=== PATIENT | female | born 1980 | race Caucasian/White ===

== ENCOUNTER 2017-07-14 11:22 | Emergency (ER) | payer BC ==
[2017-07-14] MEDS ORDERED: Ondansetron INJ* 2 MG/ML VIAL IV ONE (12:39)
[2017-07-14] MEDS ORDERED: NS 0.9% 1000 ML* 1,000 ML IV ONE (12:39)
[2017-07-14] MEDS ORDERED: Morphine INJ* 2 MG/ML 1 ML CARPUJECT IV ONE (12:39)
[2017-07-14] MEDS ORDERED: Ketorolac INJ* 30 MG/ML 1 ML VIAL IV PUSH ONE (12:40)
[2017-07-14 13:17] LABS: Hematocrit 43 % (35-47); Hemoglobin 14.5 g/dl (12.0-16.0); Mean Corpuscular HGB Conc 34 g/dl (31-36); Mean Corpuscular Hemoglobin 30 pg (27-31); Mean Corpuscular Volume 88 fL (80-97); Mean Platelet Volume 10 um3 (7.4-10.4); Red Blood Count 4.87 10^6/ul (4.0-5.4); Red Cell Distribution Width 13 % (10.5-15); White Blood Count 8.7 10^3/ul (3.5-10.8)
[2017-07-14 13:30] LABS: BUN/Creatinine Ratio 9.2 (8-20); Calcium 8.9 mg/dL (8.6-10.3); EGFR African American 110.7 (>60); EGFR Non-African American 86.1 (>60); Potassium 4.1 mmol/L (3.5-5.0); Total Bilirubin 0.3 mg/dL (0.2-1.0)
[2017-07-14 14:10] VITALS: BP 114/68
--- NOTE | 2017-07-15 21:05 | ED ---
Monet Hogan Edward, scribed for Bryant Burgos MD on 07/14/17 at 1220 . Abdominal Pain/Female - HPI Summary HPI Summary: 37 y/o female presents to the ED c/o severe ABD pain starting this morning at 01 :00. The pain is located on the L side of her ABD, aggravated by laying on her L side. The pain is rated 8-9/10 in severity. Pt states the ABD pain is secondary to endometriosis. The pain is not alleviated with 4 hydrocodone tabs taken earlier today. PMHx endometriosis. Associated sx: nausea. Denies fevers. PMHx depression. Pt is currently on her period. - History of Current Complaint Chief Complaint: EDAbdPain Stated Complaint: PELVIC PAIN Time Seen by Provider: 07/14/17 12:19 Hx Obtained From: Patient Hx Last Menstrual Period: Now Onset/Duration: Lasting Hours, Still Present Severity Currently: Severe Pain Intensity: 9 Pain Scale Used: 0-10 Numeric Location: Other - L side Aggravating Factor(s): Other: - Lying on L side Alleviating Factor(s): Nothing - Not alleviated by hydrocodone Associated Signs and Symptoms: Positive: Nausea. Negative: Fever Allergies/Adverse Reactions: Allergies Allergy/AdvReac Type Severity Reaction Status Date / Time No Known Allergies Allergy Verified 07/14/17 11:38 PMH/Surg Hx/FS Hx/Imm Hx Previously Healthy: No Endocrine/Hematology History: Denies: Hx Diabetes, Hx Thyroid Disease Cardiovascular History: Denies: Hx Hypertension Respiratory History: Denies: Hx Asthma, Hx Chronic Obstructive Pulmonary Disease (COPD) GI History: Denies: Hx Ulcer History: Reports: Other Problems/Disorders - Hx endometriosis Denies: Hx Kidney Stones, Hx Renal Disease Sensory History: Denies: Hx Contacts or Glasses, Hx Hearing Aid Opthamlomology History: Denies: Hx Contacts or Glasses Psychiatric History: Reports: Hx Anxiety, Hx Eating Disorder - Pt. went to a t/ x facility for an eating d/o in 2012., Hx Depression, Hx Community Mental Health Tx, Other Psychiatric Issues/Disorders - chronic fatigue Denies: Hx Panic Disorder, Hx Post Traumatic Stress Disorder, Hx Inpatient Treatment, Hx Schizophrenia, Hx Suicide Attempt, Hx of Violent Episodes Against Others, Hx Substance Abuse - Surgical History Surgery Procedure, Year, and Place: x1. laparoscopy/hysteroscopy october 2013 Infectious Disease History: No Infectious Disease History: Denies: Hx Clostridium Difficile, Hx Hepatitis, Hx Human Immunodeficiency Virus (HIV), Hx of Known/Suspected MRSA, Hx Shingles, Hx Tuberculosis, Hx Known/ Suspected VRE, Hx Known/Suspected VRSA, History Other Infectious Disease, Traveled Outside the [place] in Last 30 Days - Family History Known Family History: Positive: Other - Endometriosis (mother) - Social History Alcohol Use: Occasionally Hx Substance Use: No Substance Use Type: Reports: None Hx Tobacco Use: Yes Smoking Status (MU): Former Smoker Type: Cigarettes Length of Time of Smoking/Using Tobacco: quit June 2011 Review of Systems Constitutional: Negative Eyes: Negative ENT: Negative Cardiovascular: Negative Respiratory: Negative Positive: Abdominal Pain, Nausea Genitourinary: Negative Musculoskeletal: Negative Skin: Negative Neurological: Negative Psychological: Normal All Other Systems Reviewed And Are Negative: Yes Physical Exam - Summary Physical Exam Summary: VITAL SIGNS: Reviewed. GENERAL: Patient is a well-developed and nourished female who is lying comfortable in the stretcher. ~Patient is not in any acute respiratory distress. HEAD AND FACE: Normocephalic and atraumatic. EYES: PERRLA, EOMI x 2, No injected conjunctiva. EARS: Hearing grossly intact. Ear canals and tympanic membranes are WNL. MOUTH: Oropharynx within normal limits. NECK: Supple, trachea is midline, no adenopathy, no JVD. CHEST: Symmetric, no tenderness at palpation LUNGS: Clear to auscultation bilaterally. No wheezing or crackles. CVS: RRR, S1 and S2 present, no murmurs or gallops appreciated. ABDOMEN: Soft, tender @ LLQ and L pelvic area. No signs of distention. Positive bowel sounds. No rebound no guarding, and no masses palpated. No abdominal bruit or pulsations. EXTREMITIES: FROM in all major joints, no edema, no cyanosis or clubbing. NEURO: Alert and oriented x 3. No acute neurological deficits. Speech is normal. SKIN: Dry and warm Triage Information Reviewed: Yes Vital Signs On Initial Exam: Initial Vitals Temp Pulse Resp BP Pulse Ox 97.0 F 90 18 134/66 99 07/14/17 11:34 07/14/17 11:34 07/14/17 11:34 07/14/17 11:34 07/14/17 11:34 Vital Signs Reviewed: Yes - Juan Coma Scale Coma Scale Total: 15 Diagnostics - Vital Signs Vital Signs Temp Pulse Resp BP Pulse Ox 07/14/17 11:34 97.0 F 90 18 134/66 99 - Laboratory Lab Results: Lab Results 07/14/17 07/14/17 07/14/17 Range/Units 12:40 12:45 12:45 WBC 8.7 (3.5-10.8) 10^3/ul RBC 4.87 (4.0-5.4) 10^6/ul Hgb 14.5 (12.0-16.0) g/dl Hct 43 (35-47) % MCV 88 (80-97) fL MCH 30 (27-31) pg MCHC 34 (31-36) g/dl RDW 13 (10.5-15) % Plt Count 226 (150-450) 10^3/ul MPV 10 (7.4-10.4) um3 Neut % (Auto) 80.3 (38-83) % Lymph % (Auto) 13.6 L (25-47) % Mchenry % (Auto) 4.5 (1-9) % Eos % (Auto) 0.9 (0-6) % Baso % (Auto) 0.7 (0-2) % Absolute Neuts (auto) 7.0 (1.5-7.7) 10^3/ul Absolute Lymphs (auto) 1.2 (1.0-4.8) 10^3/ul Absolute Monos (auto) 0.4 (0-0.8) 10^3/ul Absolute Eos (auto) 0.1 (0-0.6) 10^3/ul Absolute Basos (auto) 0.1 (0-0.2) 10^3/ul Absolute Nucleated RBC 0.01 10^3/ul Nucleated RBC % 0.1 Sodium 137 (133-145) mmol/L Potassium 4.1 (3.5-5.0) mmol/L Chloride 107 (101-111) mmol/L Carbon Dioxide 24 (22-32) mmol/L Anion Gap 6 (2-11) mmol/L BUN 7 (6-24) mg/dL Creatinine 0.76 (0.51-0.95) mg/dL Est GFR ( Amer) 110.7 (>60) Est GFR (Non-Af Amer) 86.1 (>60) BUN/Creatinine Ratio 9.2 (8-20) Glucose 105 H (70-100) mg/dL Calcium 8.9 (8.6-10.3) mg/dL Total Bilirubin 0.30 (0.2-1.0) mg/dL AST 28 (13-39) U/L ALT 36 (7-52) U/L Alkaline Phosphatase 70 (34-104) U/L Total Protein 7.0 (6.4-8.9) g/dL Albumin 4.0 (3.2-5.2) g/dL Globulin 3.0 (2-4) g/dL Albumin/Globulin Ratio 1.3 (1-3) Beta HCG, Quant < 0.60 mIU/mL Result Diagrams: 07/14/17 12:45 07/14/17 12:45 Lab Statement: Any lab studies that have been ordered have been reviewed, and results considered in the medical decision making process. Re-Evaluation - Re-Evaluation 1 Re-Evaluation Time: 14:10 Abdominal Pain Fem Course/Dx - Course Course Of Treatment: 37 y/o female presents to the ED c/o severe ABD pain starting this morning at 01:00. The pain is located on the L side of her ABD, aggravated by laying on her L side. The pain is rated 8-9/10 in severity. Pt states the ABD pain is secondary to endometriosis. The pain is not alleviated with 4 hydrocodone tabs taken earlier today. PMHx endometriosis. Associated sx: nausea. Denies fevers. PMHx depression. Pt is currently on her period. Test results without any significant abnormalities. In the ED course the patient was given 1 dose of morphine and toradol and the sx resolved. Pain is 0/10. I offered an US and pelvic exam but the pt declined since she has had multiple US and pelvic exams with no findings. Pt states her pain is secondary to endometriosis. I discussed with Dr. Btoello who recommends f/u with her as an outpatient. The pt is hemodynamically stable and A&Ox3. - Diagnoses Provider Diagnoses: Pelvic pain, Endometriosis - Provider Notifications Discussed Care Of Patient With: Alondra Botello Time Discussed With Above Provider: 12:45 Instructed by Provider To: Other - F/U at her office Discharge - Discharge Plan Condition: Stable Disposition: HOME Prescriptions: Naproxen TAB* [Naprosyn 250 mg TAB*] 500 mg PO Q8H PRN #30 tab PRN Reason: Pain Patient Education Materials: Pelvic Pain in Women (ED) Referrals: Alondra Botello MD [Medical Doctor] - 3 Days (PLEASE F/U IN 2-3 DAYS) The documentation as recorded by the Monet prieto Edward accurately reflects the service I personally performed and the decisions made by Aubrey castle Walter, MD.
== END 2017-07-14 14:35 | disposition home or self-care (01) ==
LOC: ED 11:22 → MERGE 11:22 → ED 14:35
DX: R10.2 Pelvic and perineal pain (principal); N80.9 Endometriosis, unspecified; Z87.891 Personal history of nicotine dependence
CPT/HCPCS: 36415; 80053; 84702; 85025; 96360; 96374; 96375; 99284; J1885; J2270; J2405

== ENCOUNTER 2017-07-22 17:41 | Emergency (ER) | payer BC ==
[2017-07-22 18:13] VITALS: BP 114/73
--- NOTE | 2017-07-22 19:01 | UC ---
Respiratory Complaint HPI - HPI Summary HPI Summary: 37 y/o female presents to he urgent care c/o persistent productive cough for the past 10 days. Now she is having SOB, subjective fever at home. Cough is producing a green phlegm. Also nasal congestion with sinus pain and yellowish nasal discharge. Pt has taking Dayquil, Nyquil and Riccola lozenges to alleviate symptoms w/o any improve of symptom. Pt denies chest pain, N/V/D, abdominal pain. - History of Current Complaint Chief Complaint: UCRespiratory Stated Complaint: COUGH Time Seen by Provider: 07/22/17 18:46 Hx Obtained From: Patient Hx Last Menstrual Period: 07/14/17 ?: No - regular normal period Onset/Duration: Gradual Onset, Lasting Weeks - 10 days, Still Present Severity Initially: Mild Severity Currently: Severe Pain Intensity: 0 Pain Scale Used: 0-10 Numeric Character: Cough: Productive - green phlegm Aggravating Factors: Deep Breaths Alleviating Factors: Nothing Associated Signs And Symptoms: Positive: Dyspnea, Fever - subjective at home, URI, Nasal Congestion - Risk Factors Pulmonary Embolism Risk Factors: Negative Cardiac Risk Factors: Negative Pseudomonas Risk Factors: Negative Tuberculosis Risk Factors: Negative - Allergies/Home Medications Allergies/Adverse Reactions: Allergies Allergy/AdvReac Type Severity Reaction Status Date / Time No Known Allergies Allergy Verified 07/22/17 18:13 Home Medications: Home Medications Methylphenidate TAB* [Ritalin TAB*] 20 mg PO DAILY 07/22/17 [History Confirmed 07/22/17] Temazepam [Restoril] 1 cap PO BEDTIME 07/22/17 [History Confirmed 07/22/17] PMH/Surg Hx/FS Hx/Imm Hx Previously Healthy: Yes Other Endocrine History: chronic fatigue syndrome, Other GI/ History: Endometriosis Other Neurological History: Insomnia Psychological History: Anxiety, Depression - Surgical History Surgical History: Yes Surgery Procedure, Year, and Place: x1. laparoscopy/hysteroscopy october 2013 - Family History Known Family History: Positive: Diabetes, Other Family History: Endometriosis - Social History Occupation: Employed Full-time Lives: With Family Alcohol Use: Occasionally Substance Use Type: None Smoking Status (MU): Former Smoker Type: Cigarettes Length of Time of Smoking/Using Tobacco: quit June 2011 Have You Smoked in the Last Year: No Household Exposure Type: Cigarettes - Immunization History Most Recent Influenza Vaccination: Unknown Most Recent Pneumonia Vaccination: Never Review of Systems Constitutional: Fever - subjective at home Skin: Negative Eyes: Negative ENT: Nasal Discharge - yellowish discharge, Sinus Congestion Respiratory: Shortness Of Breath, Cough - productive with green phlegm Cardiovascular: Negative Gastrointestinal: Negative Genitourinary: Negative Motor: Negative Neurovascular: Negative Musculoskeletal: Negative Neurological: Negative Psychological: Negative Is Patient Immunocompromised?: No All Other Systems Reviewed And Are Negative: Yes Physical Exam Triage Information Reviewed: Yes Appearance: Well-Appearing, No Pain Distress, Well-Nourished, Obese Vital Signs: Initial Vital Signs Temp 98.8 F 07/22/17 18:06 Pulse 94 07/22/17 18:06 Resp 18 07/22/17 18:06 BP 114/73 07/22/17 18:06 Pulse Ox 99 07/22/17 18:06 Eye Exam: Normal Eyes: Positive: Conjunctiva Clear - PERRLA, EOMI, fundi grossly normal ENT: Positive: Normal ENT inspection, Hearing grossly normal, Pharynx normal, Nasal congestion - edematous and erythematous nasal mucosa. b/L maxillary and frontal sinus tenderness on percussion., Nasal drainage - yellowish, TMs normal - B/L external ear canal clear, B/L ear canal WNL Neck: Positive: Supple, Nontender, No Lymphadenopathy Respiratory: Positive: Chest non-tender, No respiratory distress, No accessory muscle use, Rhonchi - B/L upper posterior lungs with rhonchi Cardiovascular: Positive: RRR, No Murmur, Pulses Normal, Brisk Capillary Refill Abdomen Description: Positive: Nontender, No Organomegaly, Soft. Negative: CVA Tenderness (R), CVA Tenderness (L) Bowel Sounds: Positive: Present Musculoskeletal: Positive: Strength Intact, ROM Intact, No Edema Neurological Exam: Normal Psychological Exam: Normal Skin Exam: Normal UC Diagnostic Evaluation - Laboratory O2 Sat by Pulse Oximetry: 99 Respiratory Course/Dx - Course Course Of Treatment: 37 y/o female presents to he urgent care c/o persistent productive cough for the past 10 days. Now she is having SOB, subjective fever at home. Cough is producing a green phlegm. Also nasal congestion with sinus pain and yellowish nasal discharge. Pt has taking Dayquil, Nyquil and Riccola lozenges to alleviate symptoms w/o any improve of symptom. Pt denies chest pain , N/V/D, abdominal pain. Hx obtaeined. Pt with B/L upper posterior lungs with rhonchi on examination. Pt with Acute bronchitis. Chest X-ray ordered r/o pneumonia. Impression: No acute cardiopulmonary disease. Albuterol Neb treatment ordered. Pt tolerated well treatment. Pt Rx Z-beronica Po . first dose given at the clinic. Also Rx Albuterol inhalers for bronchospasm and Tessalon PO for cough. Pt advised to increase fluid intake, rest, eat well, to f/u with your PCP in 1 week if not improvement for further management. Pt understood and agreed w/ plan of care. - Differential Dx/Diagnosis Differential Diagnosis/HQI/PQRI: Asthma, Bronchitis, Lower Resp Infection, Sinusitis Provider Diagnoses: 1- Acute bronchitis Discharge - Discharge Plan Condition: Stable Disposition: HOME Prescriptions: Albuterol HFA INHALER* [Ventolin HFA Inhaler*] 1 - 2 puff INH Q6H PRN #1 mdi PRN Reason: Cough Azithromycin TAB* [Zithromax TAB (Z-BERONICA) 250 mg #6 tabs] 250 mg PO DAILY #4 tab Benzonatate CAP* [Tessalon 100 MG CAP*] 100 mg PO TID PRN #15 cap PRN Reason: Cough Patient Education Materials: Acute Bronchitis (ED) Forms: *Work Release Referrals: Valentin Simmons MD [Primary Care Provider] - 1 Week Additional Instructions: 1-Please take full course of antibiotic to avoid resistance. 2-Take Tessalon PO tabs as directed and use the albuterol inhaler to alleviate cough. Increase fluid intake, rest and eat well. 3- If symptoms do not improve or worsen or your develop SOB with fever and cough is worse please go immediately to the ER further evaluation and treatment. 4- F/u with your PCP in 1 week if not improvement for further management.
--- NOTE | 2017-07-22 19:42 | RAD ---
HISTORY: Shortness of breath, productive cough COMPARISONS: May 10, 2015 VIEWS: 4: Frontal dual-energy and lateral views of the chest. FINDINGS: CARDIOMEDIASTINAL SILHOUETTE: The cardiomediastinal silhouette is normal. ROSA: The rosa are normal. PLEURA: The costophrenic angles are sharp. No pleural abnormalities are noted. LUNG PARENCHYMA: The lungs are clear. ABDOMEN: The upper abdomen is clear. There is no subphrenic gas. BONES AND SOFT TISSUES: No bone or soft tissue abnormalities are noted. OTHER: None. IMPRESSION: NO ACTIVE CARDIOPULMONARY DISEASE.
[2017-07-22] MEDS ORDERED: Azithromycin TAB* 250 MG PO ONE (19:45)
[2017-07-22] MEDS ORDERED: Albuterol 2.5 MG/3 ML NEB.SOL* (0.083%) INH ONE (19:46)
== END 2017-07-22 20:20 | disposition home or self-care (01) ==
LOC: UCEAST 17:41
DX: J20.9 Acute bronchitis, unspecified (principal); R53.82 Chronic fatigue, unspecified
CPT/HCPCS: 71020; 99212; A9270-GY; G0463

== ENCOUNTER 2017-10-17 11:30 | Emergency (ER) | payer SELFPAY ==
[2017-10-17 13:40] LABS: ABS Basophils 0.1 10^3/ul (0-0.2); ABS Eosinophils 0.2 10^3/ul (0-0.6); ABS Lymphocytes 2.1 10^3/ul (1.0-4.8); ABS Monocytes 0.5 10^3/ul (0-0.8); ABS Nucleated RBC 0.01 10^3/ul; Eosinophil % 3.3 % (0-6); Hematocrit 42 % (35-47); Hemoglobin 14.1 g/dl (12.0-16.0); Lymphocyte % 36.1 % (25-47); Mean Corpuscular HGB Conc 33 g/dl (31-36); Mean Corpuscular Hemoglobin 29 pg (27-31); Mean Corpuscular Volume 87 fL (80-97); Mean Platelet Volume 10 um3 (7.4-10.4); Nucleated Red Blood Cells % 0.2; Platelet Count 221 10^3/ul (150-450); Red Blood Count 4.84 10^6/ul (4.0-5.4); Red Cell Distribution Width 14 % (10.5-15); White Blood Count 5.8 10^3/ul (3.5-10.8)
[2017-10-17 13:57] LABS: EGFR Non-African American 93.1 (>60)
[2017-10-17] MEDS ORDERED: Morphine INJ* 4 MG/ML 1 ML CARPUJECT IV ONE ×3 (14:32→20:11)
[2017-10-17] MEDS: Ondansetron INJ* 2 MG/ML VIAL IV ONE ×2 (14:44→17:13)
[2017-10-17] MEDS ORDERED: NS 0.9% 1000 ML* 1,000 ML IV ONE (16:04)
[2017-10-17] MEDS ORDERED: Ondansetron INJ* 2 MG/ML VIAL ONE (17:12)
[2017-10-17 17:52] LABS: Urine Appearance Cloudy; Urine Blood 3+ (Negative); Urine Color Yellow; Urine Ketones Trace (Negative); Urine Protein 1+(30 mg/dL) (Negative); Urine Specific Gravity 1.031 (1.010-1.030); Urine Urobilinogen Negative (Negative)
--- NOTE | 2017-10-17 18:10 | RAD ---
Indication: LEFT pelvic pain. Vaginal bleeding. Post LEFT ovary resection. Comparison: May 19, 2017 ultrasound. Technique: Transvaginal pelvic ultrasound. Report: 9.0 x 5.4 x 7.2 cm anteverted uterus. Heterogeneous myometrial echotexture which may reflect small fibroids or potentially adenomyosis. 6.5 mm endometrium. IUD appears in appropriate position in the endometrial cavity. Nabothian cysts at the cervix. Physiologic small volume of free pelvic fluid. 3.6 x 2.3 x 2.7 cm RIGHT ovary with documented vascular flow is remarkable for a dominant 2.5 x 1.7 x 1.7 cm largely anechoic cyst with minimal marginal irregularity most consistent with a follicular cyst. The LEFT ovary is not visualized corresponding with surgical history. No extraovarian adnexal region lesions evident. IMPRESSION: 1. Heterogeneous myometrial echotexture which may reflect small fibroids or potentially adenomyosis. 2. 3.6 x 2.3 x 2.7 cm RIGHT ovary with documented vascular flow is remarkable for a dominant 2.5 x 1.7 x 1.7 cm largely anechoic cyst with minimal marginal irregularity most consistent with a follicular cyst. This lesion is low suspicion based on small size. 3. Negative for extra ovarian adnexal region lesions.
--- NOTE | 2017-10-17 18:54 | ED ---
GI/ HPI - HPI Summary HPI Summary: ( delivery) pt presents today with LLQ pelvic pain worsening since surgery Sep 2017. She had B/L fallopian tubes removed and Lt ovary for endometriosis at [facility]. She also had an IUD placed. Had vaginal spotting at first then develop a "full blown period". She's had pain since surgery and has been managing it with aleve and percocet at home but reports today is just got worse. Denies N/V - has diarrhea routinely since surgery - admits she's prone to diarrhea w/ periods so just figured it had to do with that - no hematochezia or rectal pain - no h/o diverticulitis/diverticulosis. Denies fever, chills, dysuria, vaginal d/c other than blood, vaginal irritation, chest pain, SOB, CERNA, lightheadedness, dizziness or syncope. She is NOT saturating 1 pad her hour for multiple hours. Has not been sexually active in a while d/t pelvic pain for a few months now. Follow with Dr. Kitty Camacho at [facility] and surgeon Dr. Nickerson. Denies h/o pelvic infection. - History of Current Complaint Chief Complaint: EDAbdPain Time Seen by Provider: 10/17/17 16:03 Stated Complaint: LOWER LEFT PELVIC PAIN Hx Obtained From: Patient, Family/Air Brush Operator - Hx Last Menstrual Period: 07/14/17 Pain Intensity: 5 - Additional Pertinent History Primary Care Physician: [id number] - Allergy/Home Medications Allergies/Adverse Reactions: Allergies Allergy/AdvReac Type Severity Reaction Status Date / Time No Known Allergies Allergy Verified 10/12/17 13:52 PMH/Surg Hx/FS Hx/Imm Hx Previously Healthy: Yes Endocrine/Hematology History: Denies: Hx Anticoagulant Therapy, Hx Blood Disorders, Hx Diabetes, Hx Thyroid Disease, Hx Anemia, Hx Unexplained Bleeding Cardiovascular History: Denies: Hx Hypertension, Hx Pacemaker/ICD Respiratory History: Denies: Hx Asthma, Hx Chronic Obstructive Pulmonary Disease (COPD) GI History: Denies: Hx Ulcer History: Reports: Other Problems/Disorders - Hx endometriosis - B/L fallopian tube removal and Lt oophorectomy 09/17/17 Denies: Hx Kidney Stones, Hx Renal Disease Sensory History: Denies: Hx Contacts or Glasses, Hx Hearing Aid Opthamlomology History: Denies: Hx Contacts or Glasses Psychiatric History: Reports: Hx Anxiety, Hx Eating Disorder - Pt. went to a t/ x facility for an eating d/o in 2012., Hx Depression, Hx Community Mental Health Tx, Other Psychiatric Issues/Disorders - chronic fatigue Denies: Hx Panic Disorder, Hx Post Traumatic Stress Disorder, Hx Inpatient Treatment, Hx Schizophrenia, Hx Suicide Attempt, Hx of Violent Episodes Against Others, Hx Substance Abuse - Surgical History Surgery Procedure, Year, and Place: x1;. laparoscopy/hysteroscopy october 2013 + 15 september 2017; Infectious Disease History: No Infectious Disease History: Denies: Hx Clostridium Difficile, Hx Hepatitis, Hx Human Immunodeficiency Virus (HIV), Hx of Known/Suspected MRSA, Hx Shingles, Hx Tuberculosis, Hx Known/ Suspected VRE, Hx Known/Suspected VRSA, History Other Infectious Disease, Traveled Outside the [place] in Last 30 Days - Family History Known Family History: Positive: Diabetes, Other Family History: Endometriosis - Social History Occupation: Unemployed Lives: With Family Alcohol Use: Occasionally Substance Use Type: Reports: Marijuana Hx Tobacco Use: Yes - not currently smoking Smoking Status (MU): Former Smoker Type: Cigarettes Length of Time of Smoking/Using Tobacco: quit June 2011 Have You Smoked in the Last Year: No Review of Systems Constitutional: Negative Negative: Fever, Chills, Fatigue Cardiovascular: Negative Respiratory: Negative Positive: Abdominal Pain - pelvic pain Positive: see HPI Musculoskeletal: Negative Skin: Negative Neurological: Negative Positive: Anxious All Other Systems Reviewed And Are Negative: Yes Physical Exam Triage Information Reviewed: Yes Vital Signs On Initial Exam: Initial Vitals Temp Pulse Resp BP Pulse Ox 98.5 F 71 18 125/71 96 10/17/17 11:48 10/17/17 11:48 10/17/17 11:48 10/17/17 11:48 10/17/17 11:48 Vital Signs Reviewed: Yes Appearance: Positive: Well-Appearing, Pain Distress - mild to moderate - can't get comfortable, Obese Skin: Positive: Warm, Dry - healed laparoscopic scar over abdomen Head/Face: Positive: Normal Head/Face Inspection Eyes: Positive: Normal, EOMI, Conjunctiva Clear - anicteric sclera ENT: Positive: Normal ENT inspection, Hearing grossly normal, Pharynx normal - mucosa moist Neck: Positive: Supple, Nontender Respiratory/Lung Sounds: Positive: Breath Sounds Present Cardiovascular: Positive: Normal, RRR, Pulses are Symmetrical in both Upper and Lower Extremities Abdomen Description: Positive: Soft, Distended - mild, Other: - RLQ and LLQ TTP - no rebounding or referred pain Bowel Sounds: Positive: Present Pelvic Exam: Positive: no cerv. motion tender, active bleeding. Negative: cervicitis, discharge - no purulent d/c, lesions, tender adnexa, tender uterus, ulcers Musculoskeletal: Positive: Normal, Strength/ROM Intact Neurological: Positive: Normal, Sensory/Motor Intact, Alert, Oriented to Person Place, Time, CN Intact II-III Psychiatric: Positive: Anxious - [place] Coma Scale Coma Scale Total: 15 Diagnostics - Vital Signs Vital Signs Temp Pulse Resp BP Pulse Ox 10/17/17 16:08 18 10/17/17 14:44 18 10/17/17 13:07 97.7 F 59 18 124/70 98 10/17/17 11:48 98.5 F 71 18 125/71 96 - Laboratory Lab Results: Lab Results 10/17/17 10/17/17 10/17/17 Range/Units 13:27 13:27 13:27 WBC 5.8 (3.5-10.8) 10^3/ul RBC 4.84 (4.0-5.4) 10^6/ul Hgb 14.1 (12.0-16.0) g/dl Hct 42 (35-47) % MCV 87 (80-97) fL MCH 29 (27-31) pg MCHC 33 (31-36) g/dl RDW 14 (10.5-15) % Plt Count 221 (150-450) 10^3/ul MPV 10 (7.4-10.4) um3 Neut % (Auto) 50.8 (38-83) % Lymph % (Auto) 36.1 (25-47) % [place] % (Auto) 8.1 (1-9) % Eos % (Auto) 3.3 (0-6) % Baso % (Auto) 1.7 (0-2) % Absolute Neuts (auto) 3.0 (1.5-7.7) 10^3/ul Absolute Lymphs (auto) 2.1 (1.0-4.8) 10^3/ul Absolute Monos (auto) 0.5 (0-0.8) 10^3/ul Absolute Eos (auto) 0.2 (0-0.6) 10^3/ul Absolute Basos (auto) 0.1 (0-0.2) 10^3/ul Absolute Nucleated RBC 0.01 10^3/ul Nucleated RBC % 0.2 APTT 28.8 (26.0-36.3) seconds Sodium 133 (133-145) mmol/L Potassium 3.9 (3.5-5.0) mmol/L Chloride 106 (101-111) mmol/L Carbon Dioxide 21 L (22-32) mmol/L Anion Gap 6 (2-11) mmol/L BUN 9 (6-24) mg/dL Creatinine 0.71 (0.51-0.95) mg/dL Est GFR ( Amer) 119.8 (>60) Est GFR (Non-Af Amer) 93.1 (>60) BUN/Creatinine Ratio 12.7 (8-20) Glucose 90 (70-100) mg/dL Calcium 9.4 (8.6-10.3) mg/dL Magnesium 2.2 (1.9-2.7) mg/dL Total Bilirubin 0.30 (0.2-1.0) mg/dL AST 40 H (13-39) U/L ALT 53 H (7-52) U/L Alkaline Phosphatase 79 (34-104) U/L Total Protein 6.9 (6.4-8.9) g/dL Albumin 4.1 (3.2-5.2) g/dL Globulin 2.8 (2-4) g/dL Albumin/Globulin Ratio 1.5 (1-3) Amylase 62 (29-103) U/L Lipase 115 H (11.0-82.0) U/L Urine Color Urine Appearance Urine pH (5-9) Ur Specific [place] (1.010-1.030) Urine Protein (Negative) Urine Ketones (Negative) Urine Blood (Negative) Urine Nitrate (Negative) Urine Bilirubin (Negative) Urine Urobilinogen (Negative) Ur Leukocyte Esterase (Negative) Urine WBC (Auto) (Absent) Urine RBC (Auto) (Absent) Ur Squamous Epith Cells (Absent) Urine Bacteria (Absent) Urine Glucose (Negative) Blood Type Antibody Screen 10/17/17 10/17/17 Range/Units 13:27 17:01 WBC (3.5-10.8) 10^3/ul RBC (4.0-5.4) 10^6/ul Hgb (12.0-16.0) g/dl Hct (35-47) % MCV (80-97) fL MCH (27-31) pg MCHC (31-36) g/dl RDW (10.5-15) % Plt Count (150-450) 10^3/ul MPV (7.4-10.4) um3 Neut % (Auto) (38-83) % Lymph % (Auto) (25-47) % [place] % (Auto) (1-9) % Eos % (Auto) (0-6) % Baso % (Auto) (0-2) % Absolute Neuts (auto) (1.5-7.7) 10^3/ul Absolute Lymphs (auto) (1.0-4.8) 10^3/ul Absolute Monos (auto) (0-0.8) 10^3/ul Absolute Eos (auto) (0-0.6) 10^3/ul Absolute Basos (auto) (0-0.2) 10^3/ul Absolute Nucleated RBC 10^3/ul Nucleated RBC % APTT (26.0-36.3) seconds Sodium (133-145) mmol/L Potassium (3.5-5.0) mmol/L Chloride (101-111) mmol/L Carbon Dioxide (22-32) mmol/L Anion Gap (2-11) mmol/L BUN (6-24) mg/dL Creatinine (0.51-0.95) mg/dL Est GFR ( Amer) (>60) Est GFR (Non-Af Amer) (>60) BUN/Creatinine Ratio (8-20) Glucose (70-100) mg/dL Calcium (8.6-10.3) mg/dL Magnesium (1.9-2.7) mg/dL Total Bilirubin (0.2-1.0) mg/dL AST (13-39) U/L ALT (7-52) U/L Alkaline Phosphatase (34-104) U/L Total Protein (6.4-8.9) g/dL Albumin (3.2-5.2) g/dL Globulin (2-4) g/dL Albumin/Globulin Ratio (1-3) Amylase (29-103) U/L Lipase (11.0-82.0) U/L Urine Color Yellow Urine Appearance Cloudy Urine pH 5.0 (5-9) Ur Specific [place] 1.031 H (1.010-1.030) Urine Protein 1+(30 mg/dl) H (Negative) Urine Ketones Trace H (Negative) Urine Blood 3+ H (Negative) Urine Nitrate Negative (Negative) Urine Bilirubin Negative (Negative) Urine Urobilinogen Negative (Negative) Ur Leukocyte Esterase Negative (Negative) Urine WBC (Auto) Trace(0-5/hpf) (Absent) Urine RBC (Auto) 3+(>10/hpf) H (Absent) Ur Squamous Epith Cells Present H (Absent) Urine Bacteria Absent (Absent) Urine Glucose Negative (Negative) Blood Type O Positive Antibody Screen Negative Result Diagrams: 10/17/17 13:27 10/17/17 13:27 Diagnostic Studies Comment: TVUS report reviewed Lab Statement: Any lab studies that have been ordered have been reviewed, and results considered in the medical decision making process. Re-Evaluation - Re-Evaluation First Eval Change: Improved - brief and minimal relief of pain - ordered 4mg more morphine Second Eval Change: Improved GIGU Course/Dx - Course Course Of Treatment: Prolonged vaginal bleeding w/ pain s/p pelvic surgery for endometriosis. Her TVUS reveals fibroids/adenomysis of the uterus and follicular cyst of Rt ovary - no abscess, no fluid collection, extradnexal lesions. IUD in place. Suspect pain is from dysmenorrhea w/ post surgical site pain - may also have pain from ovarian cyst/fibroids. She will increase percocet at home from 5mg per dose to 10mg per dose as she felt better with morphine here today. No s/sx of infection or hemorrhage - labs and vitals are WNL. Discussed w/ Dr. Vidal who agrees w/ d/c nad close f/u w/ OBGYN at [facility] - pt will call tomorrow and take disc of TVUS to [facility] for review. Reviewed danger s/sx of when to return to ED. UPDATE: upon attempt to d/c pt, she reports worsening of pain. Provided more morphine IV which reduced pain to 3/10 but she had nausea w/ applesauce as we PO tested prior to d/c. Reviewed previous ab/pelvis CT and found diverticulosis then. After pain med tonight she reports pain is most focal to LLQ - RLQ pain has resolved. She reports possible dx of IBS but not sure if this feels the same. Discussed CT ab/pelvis w/ constrast to better asses for diverticulitis tonight - this is test of choice. Pt however declines test as she does not have insurance and would like to simply try anbx at home along w/ diverticulitis diet. If pain does not improve or danger s/sx present, she will return to ED. She is aware of the risks of declining CT. - Diagnoses Provider Diagnoses: Pelvic pain in female, Lesion of uterus, Right ovarian cyst, Dysmenorrhea, Irregular menstrual cycle, Left lower quadrant pain Discharge - Discharge Plan Condition: Stable Disposition: HOME Prescriptions: Amoxicillin/Clavulanate TAB* [Augmentin TAB 875*] 875 mg PO BID #19 tab Patient Education Materials: Dysmenorrhea (ED), Ovarian Cyst (ED), Uterine Fibroids (ED), Diverticulitis (ED), Pelvic Pain in Women (ED), Diverticulitis Diet (ED) Referrals: Belen SCHAFFER,Kitty Woodard [Medical Doctor] - Additional Instructions: The definitive cause of your pelvic pain was not identified however you have had increasingly worse vaginal bleeding which may indicate dysmenorrhea. Your ultrasound also reveals fibroids and Right ovary cysts which can cause pain. It is important that you follow-up with your OBGYN tomorrow to discuss care plan. It was discussed today that if pain is from bleeding, you may benefit from hormone therapy. You may take percocet 10mg every 6 hours if pain is getting worse. However we were able to get your pain under control today - return to percocet 5mg with aleve as directed. *If you develop fever, chills, vomiting, chest pain, shortness of breath, hard abdomen, worsening of pelvic pain, vaginal bleeding that saturates 1 pad per hour for 12 hours, lightheadedness, dizziness, syncope, return to ED Furthermore, it was discussed that you may have diverticulitis as your pelvic pain became more focal over the course of time. You have declined CT testing but will start treatment with an antibiotic and follow diverticular diet. If pain persists or worsen or any symptoms mentioned above, return to ED. Also follow-up with your PCP regarding your possible IBS - keep a food/sleep/stress journal to monitor BM's.
[2017-10-17] MEDS ORDERED: oxyCODONE/Acetamin 5/325 MG* TAB PO ONE (19:18)
[2017-10-17] MEDS ORDERED: Amoxicillin/Clavulanate TAB* 875 MG PO ONE (22:17)
[2017-10-17 22:57] VITALS: BP 114/68
== END 2017-10-17 23:00 | disposition home or self-care (01) ==
LOC: ED 11:30
DX: R10.2 Pelvic and perineal pain (principal); N92.6 Irregular menstruation, unspecified; R10.9 Unspecified abdominal pain; Z87.891 Personal history of nicotine dependence; N85.9 Noninflammatory disorder of uterus, unspecified; N83.209 Unspecified ovarian cyst, unspecified side; N94.6 Dysmenorrhea, unspecified; R10.32 Left lower quadrant pain
CPT/HCPCS: 36415; 76830; 80053; 81003; 81015; 82150; 83690; 83735; 85025; 85730; 86850; 86900; 86901; 96374; 96375; 99284; A9270-GY; J2270; J2405